=== PATIENT | female | born 1960 | race Two or more races ===

== ENCOUNTER 2024-10-09 08:50 | Day surgery (SDC) | payer MEDICAID, SELFPAY ==
[2024-10-09] VITALS (15 sets, daily range): BP systolic 110–182; BP diastolic 70–101; PULSE 51–73; RESP 12–19; TEMP 36.2–36.6; O2SAT 96–100; BMI 24.4
[2024-10-09] MEDS: RINGERS LACTATED 1000 ML 1,000 ML 60 ML IV (11:22)
[2024-10-09] MEDS: ONDANSETRON INJ 2 MG/ML INJ 2 ML 4 MG IV (11:33)
[2024-10-09] MEDS: fentaNYL CIT INJ 50 mCg/ML AMP 2ML (ASD USE ONLY) IV (11:33)
[2024-10-09] MEDS: DiphenhydrAMINE INJ 50 MG/ML VIAL 25 MG IV (11:33)
[2024-10-09] MEDS: MIDAZOLAM INJ 1 MG/ML VIAL 2 ML (ASD USE ONLY) 2 MG IV (11:36)
[2024-10-09] MEDS: hydrALAZINE INJ 20 MG/ML VIAL 10 MG IV (11:38)
== END 2024-10-09 13:00 | disposition home or self-care (01) ==
PROVIDERS: PCP Family Medicine; Referring Provider Specialist; Visit Provider Specialist
PROC: 0DBE8ZX Excision of Large Intestine, Via Natural or Artificial Opening Endoscopic, Diagnostic (ICD-10-PCS; CPT 45380; principal; 2024-10-09 11:30)
PROC: (CPT 43239; 2024-10-09 11:30)
DX: K91.89 Other postprocedural complications and disorders of digestive system (principal); K56.699 Other intestinal obstruction unspecified as to partial versus complete obstruction; K64.9 Unspecified hemorrhoids; K44.9 Diaphragmatic hernia without obstruction or gangrene; Z98.0 Intestinal bypass and anastomosis status; Y83.2 Surgical operation with anastomosis, bypass or graft as the cause of abnormal reaction of the patient, or of later complication, without mention of misadventure at the time of the procedure
CPT/HCPCS: 45378; 43235; J0360; J1200; J2250; J2405; J3010; J7120

== ENCOUNTER 2025-01-18 07:05 | Inpatient (IN) | payer MEDICAID, SELFPAY ==
[2025-01-14 08:22] VITALS: BMI 23.4
--- NOTE | 2025-01-15 07:00 | EKG_ITS ---
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
[2025-01-15 08:27] LABS: Collection Type, Urine Clean Catch
[2025-01-15 08:43] LABS: Basophils # (Auto) 0.1 Thou/mm3 (0.0-0.2); Basophils % (Auto) 1 % (0-2.5); Eosinophils # (Auto) 0.2 Thou/mm3 (0.0-0.5); Eosinophils % (Auto) 5 % (0-10); Hematocrit 34.3 % (36.0-46.0); Hemoglobin 11.1 g/dL (12.0-16.0); Immature Granulocytes Auto 0.00 Thou/mm3 (0.00-0.00); Lymphocytes # (Auto) 2.0 Thou/mm3 (1.0-4.8); Lymphocytes % (Auto) 41 % (10-50); Mean Corpuscular HGB Conc 32.4 g/dl (31.0-37.0); Mean Corpuscular Hemoglobin 28.2 pg (25.0-35.0); Mean Corpuscular Volume 87 fL (80-100); Monocytes # (Auto) 0.4 Thou/mm3 (0.0-0.8); Monocytes % (Auto) 9 % (0-12); Neutrophils # (Auto) 2.1 Thou/mm3 (1.8-7.7); Neutrophils % (Auto) 44 % (37-80); Nucleated Red Blood Cell # 0.00 Thou/mm3 (0.00-0.00); Nucleated Red Blood Cell % 0 /100 WBC (0); Platelet Count 300 Thou/mm3 (140-440); RDW Standard Deviation 46.8 fL (36.4-46.3); Red Blood Count 3.94 Miln/mm3 (4.00-5.20); White Blood Count 4.8 Thou/mm3 (3.6-11.0)
[2025-01-15 08:49] LABS: Bilirubin,Urine Negative (Negative); Blood,Urine 1+ (Negative); Clarity,Urine Clear (Clear/Hazy); Color,Urine Lt-Yellow (Lt Yel-Yel); Glucose, Urine Negative (Negative); Ketones,Urine Negative (Negative); Leukocyte Esterase,Urine Positive (Negative); Nitrite,Urine Negative (Negative); PH,Urine 6.0 (5.0-7.0); Protein,Urine Negative (Neg - Trace); RBC,Urine 3 /hpf (0-3); Specific Gravity,Urine 1.012 (1.001-1.035); Squamous Epithelial Cell,Urine 3 /hpf (0-5); Urobilinogen,Urine Negative mg/dL (0.0-1.0); WBC,Urine 14 /hpf (0-5)
[2025-01-15 09:03] LABS: Partial Thromboplastin Time 29.4 Seconds (22.0-36.0)
[2025-01-15 09:12] LABS: Alanine Aminotransferase 26 U/L (10-49); Albumin, Serum 4.0 gm/dL (3.4-4.8); Albumin/Globulin Ratio 1.4 (1.2-2.2); Alkaline Phosphatase 107 U/L (46-116); Anion Gap 11 (7-16); Aspartate Amino Transferase 29 U/L (0-34); BUN/Creatinine Ratio 20 Ratio (12-20); Bilirubin,Total 0.4 mg/dL (0.3-1.2); Blood Urea Nitrogen 12 mg/dL (9-23); Calcium 8.7 mg/dL (8.3-10.6); Calcium (Corrected) 8.7 mg/dL (8.5-10.1); Carbon Dioxide 24.9 mMol/L (20.0-31.0); Chloride 108 mMol/L (98-107); Creatinine (Component) 0.6 mg/dL (0.6-1.3); Estimated Creatinine Clearance 64.9 mL/min (>60); Globulin 2.9 gm/dL (2.3-3.5); Glucose 84 mg/dL (74-106); Osmolality,Calculated 285 (275-295); Potassium 3.2 mMol/L (3.4-5.1); Sodium 144 mMol/L (136-145); Total Protein 6.9 gm/dL (5.7-8.2); eGFR > 60 See Note
[2025-01-18] VITALS (15 sets, daily range): BP systolic 103–145; BP diastolic 64–101; PULSE 56–80; RESP 12–20; TEMP 36.2–36.9; O2SAT 95–100; BMI 22.6
[2025-01-18] MEDS: RINGERS LACTATED 1000 ML 1,000 ML 60 ML IV (07:15)
--- NOTE | 2025-01-18 14:57 | SUR.PHASEI ---
1457: Pt. AAOx4, vitals stable, breathing unlabored, no complaint of pain or nausea, dressing to ABD CDI, no active bleed noted, ABD Binder in place, hirsch catheter in place, NG tube in right nare at 65 on LIS, report received from MD De Jesus and Deepa CASTELLANOS.
[2025-01-18] MEDS: fentaNYL CIT INJ 50 mCg/ML AMP 2ML 25 MCG IVP ×5 (15:10→15:58)
--- NOTE | 2025-01-18 15:52 | SUR.PHASEI ---
Pt. has a room assigned, waiting for MD Fontanez to place transfer orders to transfer pt. up to room. Notified MD Fontanez prior him going into another surgery that I need transfer orders for the pt. and he stated he was needed in OR and that orders will have to be placed after he is done with his surgery. Pt. resting, complaint of pain, no complaint of nausea.
[2025-01-18] MEDS: ACETAMINOPHEN IVPB 1,000 MG/100 ML VIAL 250 MG IV ×2 (16:08→21:34)
[2025-01-18] MEDS: ONDANSETRON INJ 2 MG/ML INJ 2 ML 4 MG IVP (16:23)
--- NOTE | 2025-01-18 16:31 | SUR.PHASEI ---
pt awake, alert, able to follow commands, breathing unlabored, dressing to abdomen clean, dry, and intact with abdominal binder in place, VSS, report from Slime CASTELLANOS
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
[2025-01-18] MEDS: HYDROmorphone 1 MG/ML PCA SYRINGE 30ML PCA (16:45)
--- NOTE | 2025-01-18 17:30 | SUR.PHASEI ---
pt resting with eyes closed, breathing unlabored, dressing to abdomen clean, dry, and intact with abdominal binder in place, VSS, report called to Lucy CASTELLANOS, pt transferred to room at this time.
--- NOTE | 2025-01-18 18:00 | PC.NURSE ---
Pt arrived on the floor with BUTCHERETTE Pump. 1 demand was given between the hour of 17:00 and 18:00. Pump shows volume to be infused 22.9. However, syringe looks like it has about 26 mL.
[2025-01-18] MEDS: METOPROLOL TARTRATE 25 MG TABLET PO (21:37)
[2025-01-19] VITALS (11 sets, daily range): BP systolic 96–111; BP diastolic 44–67; PULSE 63–78; RESP 12–95; TEMP 36.1–36.7; O2SAT 95–97
[2025-01-19] MEDS: ACETAMINOPHEN IVPB 1,000 MG/100 ML VIAL 250 MG IV ×3 (03:40→16:13)
[2025-01-19] MEDS: RINGERS LACTATED 1000 ML 1,000 ML 60 ML IV (08:27)
--- NOTE | 2025-01-19 08:36 | PC.NURSE ---
Called MD johnson in regards to pts current pts bp 97/60-76 HR (held lohunter medrano) reviewed old lab results from 01/15 at 3.2. Per MD ordered new labs today at 0900 to reevaluate. No new orders given at this time.
[2025-01-19 10:54] LABS: Basophils # (Auto) 0.0 Thou/mm3 (0.0-0.2); Basophils % (Auto) 0 % (0-2.5); Eosinophils # (Auto) 0.0 Thou/mm3 (0.0-0.5); Eosinophils % (Auto) 0 % (0-10); Hematocrit 29.9 % (36.0-46.0); Hemoglobin 9.9 g/dL (12.0-16.0); Immature Granulocytes Auto 0.01 Thou/mm3 (0.00-0.00); Lymphocytes # (Auto) 1.1 Thou/mm3 (1.0-4.8); Lymphocytes % (Auto) 21 % (10-50); Mean Corpuscular HGB Conc 33.1 g/dl (31.0-37.0); Mean Corpuscular Hemoglobin 28.5 pg (25.0-35.0); Mean Corpuscular Volume 86 fL (80-100); Monocytes # (Auto) 0.5 Thou/mm3 (0.0-0.8); Monocytes % (Auto) 10 % (0-12); Neutrophils # (Auto) 3.5 Thou/mm3 (1.8-7.7); Neutrophils % (Auto) 68 % (37-80); Nucleated Red Blood Cell # 0.00 Thou/mm3 (0.00-0.00); Nucleated Red Blood Cell % 0 /100 WBC (0); Platelet Count 223 Thou/mm3 (140-440); RDW Standard Deviation 47.5 fL (36.4-46.3); Red Blood Count 3.47 Miln/mm3 (4.00-5.20); White Blood Count 5.1 Thou/mm3 (3.6-11.0)
[2025-01-19 11:13] LABS: Alanine Aminotransferase 27 U/L (10-49); Albumin, Serum 3.2 gm/dL (3.4-4.8); Albumin/Globulin Ratio 1.5 (1.2-2.2); Alkaline Phosphatase 76 U/L (46-116); Anion Gap 13 (7-16); Aspartate Amino Transferase 36 U/L (0-34); BUN/Creatinine Ratio 23 Ratio (12-20); Bilirubin,Total 0.8 mg/dL (0.3-1.2); Blood Urea Nitrogen 16 mg/dL (9-23); Calcium 7.5 mg/dL (8.3-10.6); Calcium (Corrected) 8.1 mg/dL (8.5-10.1); Carbon Dioxide 21.4 mMol/L (20.0-31.0); Chloride 107 mMol/L (98-107); Creatinine (Component) 0.7 mg/dL (0.6-1.3); Estimated Creatinine Clearance 54.7 mL/min (>60); Globulin 2.2 gm/dL (2.3-3.5); Glucose 73 mg/dL (74-106); Magnesium 1.2 mg/dL (1.6-2.6); Osmolality,Calculated 281 (275-295); Potassium 3.1 mMol/L (3.4-5.1); Sodium 141 mMol/L (136-145); Total Protein 5.4 gm/dL (5.7-8.2); eGFR > 60 See Note
--- NOTE | 2025-01-19 11:41 | PC.NURSE ---
Notified MD Fontanez of current lab results over the phone new orders given.
[2025-01-19] MEDS: POTASSIUM CHL 10 mEq IVPB 10 MEQ/100 ML BAG 100 MEQ IV ×2 (13:15→16:13)
--- NOTE | 2025-01-19 13:34 | PC.SS ---
Montserrat Ryder is a 64-year-old female admitted to [facility] for [facility] [id number]. SS conducted bedside contact with the patient to complete initial assessment and to discuss discharge planning. Role and reason explained. Patient confirmed demographic information. Pt dtr Coleen Varela [phone] was at bedside and answered on behalf of the pt. She identifies herself as the pt surrogate decision maker. Pt resides at home with her and dtrs. Pt is independent with all ADLS, no need for DME. Pts PCP is Dr. Beverley Billingsley; last visit was about 2 weeks ago. DC options discussed they wish for pt to return home. Fam will provide transport at the time of DC. No further needs identified. DC Plan: Home PCP: Beverley Billingsley Address: Confirmed
[2025-01-19] MEDS: Magnesium Sulfate 4 GM Ivpb 4 GM/50 ML BAG IV (13:42)
--- NOTE | 2025-01-19 18:10 | PD.SURPROG ---
Documentation for date of: 01/19/25 Subjective Subjective Brief History: This patient is status post including laparotomy for bowel obstruction repair of incarcerated hernia and lysis of adhesions and cholecystectomy. 01/19/25 postop day 1. Patient has nasogastric tube with reduced output to about 300 cc and she has a Gonzalez catheter with adequate urine output. She is not passing any gas at this time. She is requiring IV narcotics for pain management. She is not getting out of the bed yet. Will have to get physical therapy to help her get out of the bed and ambulate. She is wearing her abdominal binder the dressing was examined there is no drainage on the dressing and abdominal wound is well-approximated without any inflammation. Breath sounds are somewhat reduced on the bases. Extremities are unremarkable. So far she has taken 1.6 mg of Dilaudid and she is also getting IV acetaminophen [id number]. Her potassium was low 3.1 so she was given 20 mEq of potassium her magnesium was low 1.2 mg and she was given 4 g of magnesium sulfate IV slowly. Her H&H was noted to be lower than preop likely from the dilution effect during the surgery as well as after having lysis of adhesions and small amount of operative blood loss. All in all patient and is stating that she is very comfortable and she is being taken good care of by the nursing staff. Exam Vital Signs Temp Pulse Resp BP Pulse Ox O2 Del Method O2 Flow Rate 98.0 F 70 16 103/56 L 95 Nasal Cannula 2 01/19/25 16:00 01/19/25 16:00 01/19/25 16:00 01/19/25 16:00 01/19/25 16:01/19/25 16:01/19/25 02:26 Narrative Exam Patient is in the bed has not gotten out of the bed. Will discontinue Gonzalez catheter after she is mobilized out of the bed. Nasogastric tube will be kept in place. The lungs are clear cardiopulmonary examination is unremarkable abdomen is nondistended. Abdominal binder was removed and the dressing was also removed to check on the abdominal wound there is no hyperemia or drainage or bleeding from the incision. Bowel tones are quite hypoactive at this time extremities there is no tenderness. There are no other identifiable issues on physical examination. Assessment & Plan Diagnosis (1) Small bowel obstruction due to adhesions: Status: Acute (2) Incarcerated ventral hernia: Status: Acute (3) Cholelithiasis and cholecystitis without obstruction: Status: Acute (4) Mesenteric abscess: Status: Acute (5) Chronic mesenteric lymphadenitis: Status: Acute Plan Will have to get physical therapy to assist her to get out of the bed and ambulate once that happens we can remove the Gonzalez catheter and then we can focus on nasogastric tube and see if we can clamp that if she is passing flatus. She has planning in 3 to 4 days after patient is mobilized and has started bowel function. Will monitor the hemoglobin hematocrit chemistry and magnesium levels for the next 2 to 3 days to see if she needs more replacement. PROCEDURES: Procedures Expiratory laparotomy on 01/18/2025 Repair of incarcerated ventral hernia measuring about 15 cm Lysis of extensive adhesions of small bowel and large bowel that took over 2 hours to lyse Removal of a mesenteric abscess associated with foreign body after previous laparotomy for trauma Removal of large mesenteric lymph node around the inflammatory mass and rapid frozen section. Open cholecystectomy
[2025-01-19] MEDS: BENZOCAINE/MENTHOL 1 LOZENGE PO ×2 (19:26→21:25)
[2025-01-20] VITALS (13 sets, daily range): BP systolic 93–129; BP diastolic 56–82; PULSE 66–89; RESP 13–18; TEMP 36.1–36.4; O2SAT 95–98
[2025-01-20] MEDS: RINGERS LACTATED 1000 ML 1,000 ML 60 ML IV (00:04)
[2025-01-20] MEDS: METOPROLOL TARTRATE 25 MG TABLET PO ×2 (08:27→20:01)
[2025-01-20 08:30] LABS: Basophils # (Auto) 0.0 Thou/mm3 (0.0-0.2); Basophils % (Auto) 1 % (0-2.5); Eosinophils # (Auto) 0.0 Thou/mm3 (0.0-0.5); Eosinophils % (Auto) 1 % (0-10); Hematocrit 31.9 % (36.0-46.0); Hemoglobin 10.5 g/dL (12.0-16.0); Immature Granulocytes Auto 0.01 Thou/mm3 (0.00-0.00); Lymphocytes # (Auto) 0.7 Thou/mm3 (1.0-4.8); Lymphocytes % (Auto) 18 % (10-50); Mean Corpuscular HGB Conc 32.9 g/dl (31.0-37.0); Mean Corpuscular Hemoglobin 28.7 pg (25.0-35.0); Mean Corpuscular Volume 87 fL (80-100); Monocytes # (Auto) 0.4 Thou/mm3 (0.0-0.8); Monocytes % (Auto) 10 % (0-12); Neutrophils # (Auto) 2.8 Thou/mm3 (1.8-7.7); Neutrophils % (Auto) 71 % (37-80); Nucleated Red Blood Cell # 0.00 Thou/mm3 (0.00-0.00); Nucleated Red Blood Cell % 0 /100 WBC (0); Platelet Count 223 Thou/mm3 (140-440); RDW Standard Deviation 49.1 fL (36.4-46.3); Red Blood Count 3.66 Miln/mm3 (4.00-5.20); White Blood Count 3.9 Thou/mm3 (3.6-11.0)
--- NOTE | 2025-01-20 08:35 | CHAP ---
Patient was visited by a Spiritual Care Volunteer on 01/19/2025 between 0900 and 1200 and received comfort, encouragement and/or prayer.
[2025-01-20 08:55] LABS: Alanine Aminotransferase 23 U/L (10-49); Albumin, Serum 3.3 gm/dL (3.4-4.8); Albumin/Globulin Ratio 1.3 (1.2-2.2); Alkaline Phosphatase 83 U/L (46-116); Anion Gap 15 (7-16); Aspartate Amino Transferase 27 U/L (0-34); BUN/Creatinine Ratio 15 Ratio (12-20); Bilirubin,Total 0.6 mg/dL (0.3-1.2); Blood Urea Nitrogen 9 mg/dL (9-23); Calcium 8.0 mg/dL (8.3-10.6); Calcium (Corrected) 8.6 mg/dL (8.5-10.1); Carbon Dioxide 18.9 mMol/L (20.0-31.0); Chloride 107 mMol/L (98-107); Creatinine (Component) 0.6 mg/dL (0.6-1.3); Estimated Creatinine Clearance 63.8 mL/min (>60); Globulin 2.6 gm/dL (2.3-3.5); Glucose 73 mg/dL (74-106); Magnesium 1.6 mg/dL (1.6-2.6); Osmolality,Calculated 278 (275-295); Potassium 3.0 mMol/L (3.4-5.1); Sodium 141 mMol/L (136-145); Total Protein 5.9 gm/dL (5.7-8.2); eGFR > 60 See Note
[2025-01-20] MEDS: BENZOCAINE/MENTHOL 1 LOZENGE PO ×4 (11:43→21:14)
[2025-01-20] MEDS: Magnesium Sulfate 2 GM Ivpb 2 GM/50 ML BAG IV (16:42)
[2025-01-20] MEDS: POTASSIUM CHL 10 mEq IVPB 10 MEQ/100 ML BAG 100 MEQ IV ×2 (16:43→18:02)
[2025-01-20] MEDS: DEXTROSE 5%-LACTATED RINGERS 1,000 ML 100 ML IV (16:43)
--- NOTE | 2025-01-20 17:51 | PC.NURSE ---
BARIATRIC PROGRAM COORDINATOR total volume cleared. Total volume infused via BARIATRIC PROGRAM COORDINATOR at 1700 was 5.6 mL. Patient reports minimal pain at this time, complaining of sore throat and mild headache. NG tube clamped at 1700; no output noted. Patient denies nausea. Abdominal dressing is clean, dry, and intact. Bowel sounds are hypoactive. Patient is not passing gas. Patient started on a clear liquid diet. Will continue to monitor.
--- NOTE | 2025-01-20 18:22 | ESPR_ITS ---
Documentation for date of: 01/20/25 Subjective Subjective Brief History: This patient is status post including laparotomy for bowel obstruction repair of incarcerated hernia and lysis of adhesions and cholecystectomy. 01/19/25 postop day 1. Patient has nasogastric tube with reduced output to about 300 cc and she has a Gonzalez catheter with adequate urine output. She is not passing any gas at this time. She is requiring IV narcotics for pain management. She is not getting out of the bed yet. Will have to get physical therapy to help her get out of the bed and ambulate. She is wearing her abdominal binder the dressing was examined there is no drainage on the dressing and abdominal wound is well-approximated without any inflammation. Breath sounds are somewhat reduced on the bases. Extremities are unremarkable. So far she has taken 1.6 mg of Dilaudid and she is also getting IV acetaminophen [id number]. Her potassium was low 3.1 so she was given 20 mEq of potassium her magnesium was low 1.2 mg and she was given 4 g of magnesium sulfate IV slowly. Her H&H was noted to be lower than preop likely from the dilution effect during the surgery as well as after having lysis of adhesions and small amount of operative blood loss. All in all patient and is stating that she is very comfortable and she is being taken good care of by the nursing staff. 01/20/2025 postop day 2 nasogastric tube by suction has been gradually reducing and therefore it was clamped. He has been started on clear liquid diet that she says she feels full right away. Today she got out of the bed with the physical therapist and walked in the room. She is not passing any flatus. She wants to have the nasogastric tube removed. There are no other complaints. Patient has good urine output and will remove the Gonzalez catheter. Hopefully that will help her ambulate more in the room. Patient still requiring IV narcotics for pain management with the Dilaudid METAL CONTROL WORKER. Potassium and magnesium need to be replaced is ordered. Exam Vital Signs Temp Pulse Resp BP Pulse Ox O2 Del Method O2 Flow Rate 97 F 77 17 120/76 95 Nasal Cannula 2 01/20/25 16:01/20/25 16:01/20/25 16:01/20/25 16:01/20/25 16:01/20/25 16:01/20/25 16:00 Narrative Exam Patient is awake cardiopulmonary examination is normal with somewhat reduced breath sounds in the bases. Abdomen is nondistended bowel tones are present. However they are quite hypoactive. The potassium and magnesium was low and about our being replaced again. Chemistries are unremarkable Gonzalez catheter is in place that will be removed. Extremities are unremarkable. Assessment & Plan Diagnosis (1) Mesenteric abscess: Status: Acute (2) Cholelithiasis and cholecystitis without obstruction: Status: Acute (3) Small bowel obstruction due to adhesions: Status: Acute (4) Incarcerated ventral hernia: Status: Acute (5) Chronic mesenteric lymphadenitis: Status: Acute Plan Nasogastric tube is clamped and will check the residuals if the residual is less than 200 cc then we may remove the nasogastric tube Gonzalez catheter will be removed. Patient is on clear liquid diet if she tolerates that with passage of flatus and we may advance her diet. PROCEDURES: Procedures Expiratory laparotomy on 01/18/2025 Repair of incarcerated ventral hernia measuring about 15 cm Lysis of extensive adhesions of small bowel and large bowel that took over 2 hours to lyse Removal of a mesenteric abscess associated with foreign body after previous laparotomy for trauma Removal of large mesenteric lymph node around the inflammatory mass and rapid frozen section. Open cholecystectomy
--- NOTE | 2025-01-20 18:23 | PC.NURSE ---
Dr. Fontanez at bedside. Per MD, check NG residual at 2030 and remove hirsch catheter.
[2025-01-21] VITALS (11 sets, daily range): BP systolic 113–140; BP diastolic 73–91; PULSE 66–117; RESP 13–19; TEMP 36.1–36.9; O2SAT 92–97; BMI 22.5
[2025-01-21] MEDS: DEXTROSE 5%-LACTATED RINGERS 1,000 ML 100 ML IV ×2 (03:27→14:24)
[2025-01-21] MEDS: BENZOCAINE/MENTHOL 1 LOZENGE PO (05:23)
--- NOTE | 2025-01-21 06:13 | PC.NURSE ---
Dr. Fontanez called to check on status of his patient. RN notified that patient has no output from NG tube and that patient is not passing gas. Dr. Fontanez ordered to remove NG tube and give dulcolax suppository.
[2025-01-21] MEDS: METOPROLOL TARTRATE 25 MG TABLET PO ×2 (08:15→20:30)
[2025-01-21 09:10] LABS: Basophils # (Auto) 0.0 Thou/mm3 (0.0-0.2); Basophils % (Auto) 1 % (0-2.5); Eosinophils # (Auto) 0.0 Thou/mm3 (0.0-0.5); Eosinophils % (Auto) 1 % (0-10); Hematocrit 30.8 % (36.0-46.0); Hemoglobin 10.2 g/dL (12.0-16.0); Immature Granulocytes Auto 0.01 Thou/mm3 (0.00-0.00); Lymphocytes # (Auto) 0.8 Thou/mm3 (1.0-4.8); Lymphocytes % (Auto) 20 % (10-50); Mean Corpuscular HGB Conc 33.1 g/dl (31.0-37.0); Mean Corpuscular Hemoglobin 28.0 pg (25.0-35.0); Mean Corpuscular Volume 85 fL (80-100); Monocytes # (Auto) 0.3 Thou/mm3 (0.0-0.8); Monocytes % (Auto) 9 % (0-12); Neutrophils # (Auto) 2.6 Thou/mm3 (1.8-7.7); Neutrophils % (Auto) 69 % (37-80); Nucleated Red Blood Cell # 0.00 Thou/mm3 (0.00-0.00); Nucleated Red Blood Cell % 0 /100 WBC (0); Platelet Count 257 Thou/mm3 (140-440); RDW Standard Deviation 45.8 fL (36.4-46.3); Red Blood Count 3.64 Miln/mm3 (4.00-5.20); White Blood Count 3.7 Thou/mm3 (3.6-11.0)
[2025-01-21 10:50] LABS: Alanine Aminotransferase 19 U/L (10-49); Albumin, Serum 3.4 gm/dL (3.4-4.8); Albumin/Globulin Ratio 1.3 (1.2-2.2); Alkaline Phosphatase 84 U/L (46-116); Anion Gap 5 (7-16); Aspartate Amino Transferase 20 U/L (0-34); BUN/Creatinine Ratio 10 Ratio (12-20); Bilirubin,Total 0.7 mg/dL (0.3-1.2); Blood Urea Nitrogen < 5 mg/dL (9-23); Calcium 8.0 mg/dL (8.3-10.6); Calcium (Corrected) 8.5 mg/dL (8.5-10.1); Carbon Dioxide 28.9 mMol/L (20.0-31.0); Chloride 103 mMol/L (98-107); Creatinine (Component) 0.5 mg/dL (0.6-1.3); Estimated Creatinine Clearance 76.5 mL/min (>60); Globulin 2.6 gm/dL (2.3-3.5); Glucose 160 mg/dL (74-106); Magnesium 1.4 mg/dL (1.6-2.6); Osmolality,Calculated 274 (275-295); Potassium 3.0 mMol/L (3.4-5.1); Sodium 137 mMol/L (136-145); Total Protein 6.0 gm/dL (5.7-8.2); eGFR > 60 See Note
--- NOTE | 2025-01-21 11:01 | PC.NURSE ---
Despite multiple attempts, RN has been unable to reach the Dr. Fontanez. Patients potassium level is 3.0, magnesium 1.4, and blood glucose is 160. Manual BG was 154. Patient reports abdominal pain level of 3/10. No ACID DIPPER pump usage noted during this shift. Patient is ambulating to the restroom with one assist. Patient is still not passing gas and bowel sounds are hypoactive.
--- NOTE | 2025-01-21 13:30 | CHAP ---
Patient was visited by the Spiritual Care Volunteer from whom they received communion. (Volunteer was in the hospital from 10:20-13:30)
[2025-01-21] MEDS: Magnesium Sulfate 4 GM Ivpb 4 GM/50 ML BAG IV (15:52)
[2025-01-21] MEDS: RINGERS LACTATED 1000 ML 1,000 ML 40 ML IV (15:52)
[2025-01-21] MEDS: POTASSIUM CHL 10 mEq IVPB 10 MEQ/100 ML BAG 100 MEQ IV ×4 (15:52→19:38)
--- NOTE | 2025-01-21 16:04 | PC.NURSE ---
Per Dr. Fontanez, administer 4G of magnesium, 40 MEQ of potassium, stop PARTY HOST/HOSTESS pump, start NORCO 10/325 every 6 hours as needed for pain, stop D5LR at 100ml/hr, and start LR at 40 MLs/hr.
--- NOTE | 2025-01-21 16:20 | PC.SS ---
Follow up note: IV Potassium and Magnesium. Post OB day 2. NG tube removed. On IV COMPLIANCE REPRESENTATIVE DEALER Pump for pain control. Pt will return home upon dc.
--- NOTE | 2025-01-21 17:36 | PC.NURSE ---
Patient has been ambulating from bed to bathroom with minimal assistance. Bowel sounds are hypoactive. Patient continues to have no flatus or bowel movements. Abdomen is soft and non-distended. Dr. Fontanez aware. Will continue to monitor.
--- NOTE | 2025-01-21 18:36 | PC.NURSE ---
Fleet enema administered.
--- NOTE | 2025-01-21 18:46 | ESPR_ITS ---
Documentation for date of: 01/21/25 Subjective Subjective Brief History: This patient is status post including laparotomy for bowel obstruction repair of incarcerated hernia and lysis of adhesions and cholecystectomy. 01/19/25 postop day 1. Patient has nasogastric tube with reduced output to about 300 cc and she has a Gonzaelz catheter with adequate urine output. She is not passing any gas at this time. She is requiring IV narcotics for pain management. She is not getting out of the bed yet. Will have to get physical therapy to help her get out of the bed and ambulate. She is wearing her abdominal binder the dressing was examined there is no drainage on the dressing and abdominal wound is well-approximated without any inflammation. Breath sounds are somewhat reduced on the bases. Extremities are unremarkable. So far she has taken 1.6 mg of Dilaudid and she is also getting IV acetaminophen [id number]. Her potassium was low 3.1 so she was given 20 mEq of potassium her magnesium was low 1.2 mg and she was given 4 g of magnesium sulfate IV slowly. Her H&H was noted to be lower than preop likely from the dilution effect during the surgery as well as after having lysis of adhesions and small amount of operative blood loss. All in all patient and is stating that she is very comfortable and she is being taken good care of by the nursing staff. 01/20/2025 postop day 2 nasogastric tube by suction has been gradually reducing and therefore it was clamped. He has been started on clear liquid diet that she says she feels full right away. Today she got out of the bed with the physical therapist and walked in the room. She is not passing any flatus. She wants to have the nasogastric tube removed. There are no other complaints. Patient has good urine output and will remove the Gonzalez catheter. Hopefully that will help her ambulate more in the room. 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 Potassium and magnesium need to be replaced is ordered. 01/21/2025. Postop day 3. Nasogastric tube was removed and patient is eating she has good appetite abdomen is not distended her potassium and magnesium was still low after replacement and this is being replaced again. She is getting ou t of the bed and ambulating in the hallways. Keep it was removed and she would be placed on oral narcotic medications for pain. Otherwise there are no new issues. Exam Vital Signs Temp Pulse Resp BP Pulse Ox O2 Del Method O2 Flow Rate 97.0 F 78 18 113/79 95 Room Air 2 01/21/25 16:00 01/21/25 16:45 01/21/25 16:45 01/21/25 16:00 01/21/25 16:45 01/21/25 16:00 01/21/25 16:45 Narrative Exam Patient is ambulating in the room and in the hallways cardiopulmonary examination appears to be normal abdomen midline incision is healing normally without any infection bowel tones are somewhat hypoactive and abdomen is mildly distended due to hypokalemia and hypomagnesemia which is being replaced. Extremities are unremarkable. The Gonzalez catheter was removed. Assessment & Plan Diagnosis (1) Small bowel obstruction due to adhesions: Status: Acute (2) Postoperative pain: Status: Acute Plan Patient ambulate more discharge planning for tomorrow. Oral pain medication. Follow-up in the office in 2 weeks. PROCEDURES: Procedures Expiratory laparotomy on 01/18/2025 Repair of incarcerated ventral hernia measuring about 15 cm Lysis of extensive adhesions of small bowel and large bowel that took over 2 hours to lyse Removal of a mesenteric abscess associated with foreign body after previous laparotomy for trauma Removal of mesenteric lymph node around the inflammatory mass at rapid frozen section. Open cholecystectomy
[2025-01-22] VITALS (8 sets, daily range): BP systolic 121–134; BP diastolic 80–88; PULSE 74–88; RESP 15–19; TEMP 36.3–36.7; O2SAT 93–97
[2025-01-22] MEDS: RINGERS LACTATED 1000 ML 1,000 ML 40 ML IV (06:29)
[2025-01-22] MEDS: METOPROLOL TARTRATE 25 MG TABLET PO (08:10)
[2025-01-22] MEDS: KETOROLAC INJ 30 MG/ML VIAL IVP ×2 (08:10→17:19)
--- NOTE | 2025-01-22 09:16 | PC.SS ---
SS rounding note; Patient has been tolerating diet. Patient will discharge home when medically cleared.
[2025-01-22 09:26] LABS: Basophils # (Auto) 0.0 Thou/mm3 (0.0-0.2); Basophils % (Auto) 1 % (0-2.5); Eosinophils # (Auto) 0.1 Thou/mm3 (0.0-0.5); Eosinophils % (Auto) 4 % (0-10); Hematocrit 27.0 % (36.0-46.0); Hemoglobin 8.9 g/dL (12.0-16.0); Immature Granulocytes Auto 0.01 Thou/mm3 (0.00-0.00); Lymphocytes # (Auto) 0.9 Thou/mm3 (1.0-4.8); Lymphocytes % (Auto) 32 % (10-50); Mean Corpuscular HGB Conc 33.0 g/dl (31.0-37.0); Mean Corpuscular Hemoglobin 28.0 pg (25.0-35.0); Mean Corpuscular Volume 85 fL (80-100); Monocytes # (Auto) 0.3 Thou/mm3 (0.0-0.8); Monocytes % (Auto) 11 % (0-12); Neutrophils # (Auto) 1.5 Thou/mm3 (1.8-7.7); Neutrophils % (Auto) 53 % (37-80); Nucleated Red Blood Cell # 0.00 Thou/mm3 (0.00-0.00); Nucleated Red Blood Cell % 0 /100 WBC (0); Platelet Count 222 Thou/mm3 (140-440); RDW Standard Deviation 45.9 fL (36.4-46.3); Red Blood Count 3.18 Miln/mm3 (4.00-5.20)
[2025-01-22 09:40] LABS: White Blood Count 2.9 Thou/mm3 (3.6-11.0)
[2025-01-22 09:54] LABS: Alanine Aminotransferase 17 U/L (10-49); Albumin, Serum 3.0 gm/dL (3.4-4.8); Albumin/Globulin Ratio 1.3 (1.2-2.2); Alkaline Phosphatase 77 U/L (46-116); Anion Gap 7 (7-16); Aspartate Amino Transferase 19 U/L (0-34); BUN/Creatinine Ratio 18 Ratio (12-20); Bilirubin,Total 0.9 mg/dL (0.3-1.2); Blood Urea Nitrogen 7 mg/dL (9-23); Calcium 7.8 mg/dL (8.3-10.6); Calcium (Corrected) 8.6 mg/dL (8.5-10.1); Carbon Dioxide 32.1 mMol/L (20.0-31.0); Chloride 102 mMol/L (98-107); Creatinine (Component) 0.4 mg/dL (0.6-1.3); Estimated Creatinine Clearance 95.6 mL/min (>60); Globulin 2.4 gm/dL (2.3-3.5); Glucose 110 mg/dL (74-106); Magnesium 1.5 mg/dL (1.6-2.6); Osmolality,Calculated 280 (275-295); Potassium 2.9 mMol/L (3.4-5.1); Sodium 141 mMol/L (136-145); Total Protein 5.4 gm/dL (5.7-8.2); eGFR > 60 See Note
--- NOTE | 2025-01-22 11:12 | PC.NURSE ---
Despite multiple attempts, RN has been unable to reach the Dr. Fontanez. Patients potassium level is 2.9 and magnesium 1.2 during morning labs. RN Will attempt to contact MD at a later time.
--- NOTE | 2025-01-22 13:30 | PC.NURSE ---
Patient will be discharged after administration of potassium and magnesium.
--- NOTE | 2025-01-22 13:31 | ESPR_ITS ---
Documentation for date of: 01/22/25 Subjective Subjective Brief History: This patient is status post including laparotomy for bowel obstruction repair of incarcerated hernia and lysis of adhesions and cholecystectomy. 01/19/25 postop day 1. Patient has nasogastric tube with reduced output to about 300 cc and she has a Gonzalez catheter with adequate urine output. She is not passing any gas at this time. She is requiring IV narcotics for pain management. She is not getting out of the bed yet. Will have to get physical therapy to help her get out of the bed and ambulate. She is wearing her abdominal binder the dressing was examined there is no drainage on the dressing and abdominal wound is well-approximated without any inflammation. Breath sounds are somewhat reduced on the bases. Extremities are unremarkable. So far she has taken 1.6 mg of Dilaudid and she is also getting IV acetaminophen [id number]. Her potassium was low 3.1 so she was given 20 mEq of potassium her magnesium was low 1.2 mg and she was given 4 g of magnesium sulfate IV slowly. Her H&H was noted to be lower than preop likely from the dilution effect during the surgery as well as after having lysis of adhesions and small amount of operative blood loss. All in all patient and is stating that she is very comfortable and she is being taken good care of by the nursing staff. 01/20/2025 postop day 2 nasogastric tube by suction has been gradually reducing and therefore it was clamped. He has been started on clear liquid diet that she says she feels full right away. Today she got out of the bed with the physical therapist and walked in the room. She is not passing any flatus. She wants to have the nasogastric tube removed. There are no other complaints. Patient has good urine output and will remove the Gonzalez catheter. Hopefully that will help her ambulate more in the room. 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 Potassium and magnesium need to be replaced is ordered. 01/21/2025. Postop day 3. Nasogastric tube was removed and patient is eating she has good appetite abdomen is not distended her potassium and magnesium was still low after replacement and this is being replaced again. She is getting ou t of the bed and ambulating in the hallways. Keep it was removed and she would be placed on oral narcotic medications for pain. Otherwise there are no new issues. January 22, 2025 postop day 4. This patient is doing much better she had potassium and magnesium replaced she still needs more replacement after that she will be discharged home she had large bowel movement yesterday and passing flatus and her condition is markedly improved. She does have some acid reflux and she will be placed on pantoprazole. She will be followed up in the office in 2 weeks. Exam Vital Signs Temp Pulse Resp BP Pulse Ox O2 Del Method O2 Flow Rate 97.6 F 77 15 134/80 H 93 L Room Air 2 01/22/25 12:01/22/25 12:01/22/25 12:01/22/25 12:01/22/25 12:01/22/25 12:01/22/25 07:38 Narrative Exam Abdomen is soft and nontender nondistended incision is healing nicely there is no infection there is no drainage. Bowel tones are present. Cardiopulmonary examination is unremarkable extremities are unremarkable. Assessment & Plan Diagnosis (1) S/P ventral herniorrhaphy: Status: Acute (2) Chronic mesenteric lymphadenitis: Status: Acute (3) Mesenteric abscess: Status: Acute (4) Cholelithiasis and cholecystitis without obstruction: Status: Acute (5) Small bowel obstruction due to adhesions: Status: Acute (6) Postoperative pain: Status: Acute Plan Replace potassium and magnesium patient is advanced on diet and discharged home to be followed in 2 weeks. Condition improved. PROCEDURES: Procedures Expiratory laparotomy on 01/18/2025 Repair of incarcerated ventral hernia measuring about 15 cm Lysis of extensive adhesions of small bowel and large bowel that took over 2 hours to lyse Removal of a mesenteric abscess associated with foreign body after previous laparotomy for trauma Removal of mesenteric lymph node around the inflammatory mass at rapid frozen section. Open cholecystectomy
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
[2025-01-22] MEDS: POTASSIUM CHL 10 mEq IVPB 10 MEQ/100 ML BAG 100 MEQ IV ×4 (13:49→17:16)
[2025-01-22] MEDS: Magnesium Sulfate 4 GM Ivpb 4 GM/50 ML BAG IV (13:49)
[2025-01-22] MEDS: MG HYD/AL HYD/SIME (Maalox Reg) SUSP 30 ML UDC PO (15:41)
[2025-01-22] MEDS: ONDANSETRON INJ 2 MG/ML INJ 2 ML 4 MG IVP (17:31)
--- NOTE | 2025-01-22 18:08 | PC.PT ---
Patient will be dc from PT services secondary to patient is I with transfers and ambulation with walker. Patient has walker available at home.
--- NOTE | 2025-01-22 19:24 | PC.NURSE ---
Pateint was recently discharged and is waiting for spouse to come pick her up. All belongings were accounted for and peripheral IV has been taken out. Discharge packet was given to patient and has arrived to pick up and delivery driver patient.
== END 2025-01-22 19:06 | disposition home or self-care (01) | DRG 224 ==
LOC: S2EX 08:12 → S2W1 08:15 → S3SX 17:49
PROVIDERS: Admitting Provider Specialist; PCP Student in an Organized Health Care Education/Training Program; Referring Provider Specialist; Visit Provider Specialist
PROC: 0DNU0ZZ Release Omentum, Open Approach (ICD-10-PCS; CPT 49000; principal; 2025-01-18 09:00)
PROC: 0DNU0ZZ Release Omentum, Open Approach (ICD-10-PCS; 2025-01-18 09:00)
PROC: 0FT40ZZ Resection of Gallbladder, Open Approach (ICD-10-PCS; CPT 47600; 2025-01-18 09:00)
DX: K43.6 Other and unspecified ventral hernia with obstruction, without gangrene (principal); K80.10 Calculus of gallbladder with chronic cholecystitis without obstruction; K66.0 Peritoneal adhesions (postprocedural) (postinfection); R59.9 Enlarged lymph nodes, unspecified; E83.42 Hypomagnesemia; K21.9 Gastro-esophageal reflux disease without esophagitis; K56.50 Intestinal adhesions [bands], unspecified as to partial versus complete obstruction; K65.1 Peritoneal abscess; I88.0 Nonspecific mesenteric lymphadenitis; K82.8 Other specified diseases of gallbladder
CPT/HCPCS: 36415; 80053; 81001; 83735; 85025; 85730; 87070; 87075; 87205; 93005; 97163; A4217; A4649; J0131; J0461; J0694; J1100; J1580; J1885; J2250; J2405; J2470; J2704; J3010; J3475; J3480; J3490; J7120; J7121; A9270